=== PATIENT | male | born 1980 | race Caucasian/White ===

== ENCOUNTER 2025-05-24 17:38 | Emergency (ER) | payer OTHER, SELFPAY ==
[2025-05-24 17:53] VITALS: BP 140/83; PULSE 111; RESP 16; TEMP 36.9; O2SAT 98
[2025-05-24] MEDS: LIDOCAINE 1% LOCAL INJ 2 ML AMPUL 4 ML INFILTRATE (18:17)
--- NOTE | 2025-05-24 18:29 | ED.WOUNDLAC ---
HPI - Wound/Laceration General Chief Complaint: Wound/Laceration Stated Complaint: Cut Finger L Hand Time Seen by Provider: 05/24/25 18:15 Source: patient and RN notes reviewed Mode of arrival: ambulatory Limitations: no limitations History of Present Illness HPI narrative: 45-year-old male patient presents to the [facility] complaining of left finger laceration. Pressure reports a laceration to his left index finger near the dorsal surface of his PIP joint of his finger. Patient was cutting wire with with wire cutters when he accidentally cut his finger. Patient says is tetanus up-to-date. Patient denies any dysfunction with his left index finger. Patient denies any significant past medical history. Since the injury only occurred 2-3 hours ago. Related Data Home Medications ?Medication ?Instructions ?Recorded ?Confirmed ?Last Taken ?Type buprenorphine 8 mg-naloxone 2 mg film 05/24/25 Unknown History sublingual film (Suboxone) Allergies Allergy/AdvReac Type Severity Reaction Status Date / Time No Known Allergies Allergy Verified 05/24/25 18:21 Review of Systems Review of Systems: CONSTITUTIONAL: Denies fever, chills, or sweats. EYES: Denies visual changes, redness, or discharge. ENT: Denies rhinorrhea, congestion, sore throat, or otalgia. CARDIOVASCULAR: Denies chest pain, palpitations, or edema. RESPIRATORY: Denies cough or dyspnea. GASTROINTESTINAL: Denies abdominal pain, nausea, vomiting, or diarrhea. GENITOURINARY: Denies dysuria or hematuria. SKIN: Denies rash or itching. Positive for laceration. MUSCULOSKELETAL: Denies back pain, joint pain, or myalgia. NEUROLOGIC: Denies headache, numbness, or weakness. PSYCHIATRIC: Denies anxiety or depression. All other systems reviewed are negative, except as documented in HPI. PMFSH Comments At the time of my signature, I reviewed and agree with the nursing past medical, surgical, social, and family history. There is no relevant family history pertinent to the patient complaint. Exam Narrative: GENERAL: This is a well-nourished, well-developed adult, in no apparent distress. They are non ill-appearing, nontoxic appearing. HEAD: normocephalic, atraumatic. EYES: Sclera clear/white. Conjunctiva normal. Vision is grossly intact. Extraocular movements intact EARS: External ears normal, Hearing grossly intact. NOSE: External nose normal THROAT: Mucous membranes moist, NECK: Neck supple, CARDIOVASCULAR: Regular rate and rhythm RESPIRATORY: Respiratory rate normal, respiratory effort nonlabored, no respiratory distress SKIN: warm, Dry, intact with no suspicious lesions or rash, good texture and turgor. NEURO: awake, alert, and oriented to person, place and time. There were no obvious focal neurologic abnormalities. EXTREMITIES: Left index finger: Horizontal laceration present to dorsal surface of the finger near the PIP joint. It is on approximated, a partially approximates. Measuring approximately 1 cm long. Hemostasis achieved with direct pressure. Patient able to flex and extend his finger against resistance at the D IP, PIP, MCP joint. Sensation intact. Capillary refill less than 2 seconds. Normal range of motion. Neurovascular status intact distal injury. No injury to nail better nail plate. Skin is warm dry and pink Course Course Emergency Course: Portions of this record may have been created with voice recognition software Level of Care: Express Care Visit Vital Signs Vital signs: Vital Signs Temperature 98.4 F 05/24/25 17:53 Pulse Rate 111 H 05/24/25 17:53 Respiratory Rate 16 05/24/25 17:53 Blood Pressure 140/83 05/24/25 17:53 Pulse Oximetry 98 05/24/25 17:53 Temperature 98.4 F 05/24/25 17:53 Pulse Rate 111 H 05/24/25 17:53 Respiratory Rate 16 05/24/25 17:53 Blood Pressure 140/83 05/24/25 17:53 Pulse Oximetry 98 05/24/25 17:53 Reviewed Procedures Laceration Laceration 1: Date: 05/24/25 Time: 18:10 Site: hand (Left index finger) Side (If applicable): left Size (cm): 1 Description: linear Depth: simple, single layer Local Anesthetic: lidocaine 1% Amount of anesthesia used (mL): 2 Pre-repair: wound explored and irrigated extensively ====== Skin Level ====== Skin layer closed with: nylon Size (cm): 5-0 Number of sutures: 2 Technique: simple, interrupted ====== Subcutaneous Layer ====== ====== Muscle Layer ====== ====== Tendon Layer ====== Dressing: Antibiotic ointment, non adherent dressing, gauze, Coban, finger splint applied. MDM - Wound/Laceration MDM Narrative Medical decision making narrative: Successful laceration repair of left index finger. Approximated well after wound closure. Wound was irrigated extensively. Will prophylactically treat with cephalexin. Patient's tetanus is up today. Neurovascular status intact distal to the injury. Normal function of finger. Discussed physical exam findings. Advised supportive measures and signs/symptoms to go to the ER. Pt is appropriate for outpt treatment and f/u. Differential Diagnosis Differential diagnosis: Likely laceration, abrasion and avulsion of skin Critical Care Time Critical Care Time Critical Care Time: No Discharge Plan Discharge Clinical Impression: Finger laceration Qualifiers: Encounter type: initial encounter Finger: index finger Damage to nail status: without damage Foreign body presence: without foreign body Laterality: left Qualified Code(s): S61.211A - Laceration without foreign body of left index finger without damage to nail, initial encounter Patient Disposition: Home Condition: Stable Instructions: Antibiotic Form, Finger Laceration (ED) Additional Instructions: Take the antibiotics as directed. Your sutures need to be removed in 10-14 days. ?Wear the dressing that has been applied for the first 24 hours to allow a scab to start forming. ?After this, you may remove and wash as normal with soap and water. ?Do NOT wash with peroxide or alcohol. ?May apply antibiotic ointment or Vaseline to the wound daily. Change the dressing daily or when daily, apply non adherent dressing such as a Band-Aid to the wound. Keep the wound a dirty water toilet healed completely. You may leave it open to air at night. Please keep her finger straight to help with healing. Take tylenol or ibuprofen as needed for pain, follow instructions on the bottle. ?Follow up with your PCP 1 week. Look for any signs of infection such as redness, swelling, increased pain, warmth, fevers, or drainage. ?Return the ER for any signs of infection or any serious concerns. Patient Language: Khmer Prescriptions: New cephalexin 500 mg capsule 500 mg PO Q6H 5 Days Qty: 20 0RF No Action buprenorphine-naloxone [Suboxone] 8-2 mg film Follow-up/Referrals: PHYSICIAN,REFRACTORY FURNACE DESIGNER [Primary Care Provider, Internal Medicine] Stand Alone Forms: Work/School Release IP Time of Disposition: 18:28
== END 2025-05-24 18:30 | disposition home or self-care (01) ==
DX: S61.211A Laceration without foreign body of left index finger without damage to nail, initial encounter (principal); W27.8XXA Contact with other nonpowered hand tool, initial encounter; Y99.0 Civilian activity done for income or pay
CPT/HCPCS: 12001; 99213; G0463; J2003